=== PATIENT | male | born 1950 | race Caucasian/White ===

== ENCOUNTER 2018-10-05 18:12 | Emergency (ER) | payer OTHER ==
--- OUTSIDE RECORDS SUMMARY | 2018-10-05 18:14 | XMS REPORT ---
:1950 Author Organization eClinicalWorks Care Team Providers Name Role Phone Rios, Na Provider Role Unavailable Allergies No Known Allergies Problems Problem Type Condition Code Onset Dates Condition Status Problem Erectile dysfunction N52.9 Active Problem Type 2 diabetes E11.9 Active Problem Glaucoma H40.9 Active Assessment Hyperlipidemia E78.5 Active Problem Allergic rhinitis J30.9 Active Problem Hypertension I10 Active Problem Hyperlipidemia E78.5 Active Problem Cataract H26.9 Active Problem Alcohol abuse F10.10 Active Problem Hypothyroidism E03.9 Active Problem Diabetic neuropathy E11.40 Active Medications Medication Code Code Instructions Start End Date Status Dosage System Date Klor-Con M10 [facility] [id number] 10 MEQ Orally Active 1 tablet Twice a day with food Simvastatin [facility] 88600652026 10 MG Orally Active 1 tablet Once a day in the evening Results No Known Results Summary Purpose eClinicalWorks Submission
--- OUTSIDE RECORDS SUMMARY | 2018-10-05 18:15 | XMS REPORT ---
:1950 Author Organization eClinicalWorks Care Team Providers Name Role Phone Rios, Na Provider Role Unavailable Allergies No Known Allergies Problems Problem Type Condition Code Onset Dates Condition Status Problem Erectile dysfunction N52.9 Active Problem Type 2 diabetes E11.9 Active Problem Glaucoma H40.9 Active Assessment Hypothyroidism E03.9 Active Assessment Type 2 diabetes E11.9 Active Problem Allergic rhinitis J30.9 Active Problem Hypertension I10 Active Problem Hyperlipidemia E78.5 Active Problem Cataract H26.9 Active Problem Alcohol abuse F10.10 Active Problem Hypothyroidism E03.9 Active Problem Diabetic neuropathy E11.40 Active Medications Medication Code Code Instructions Start End Status Dosage System Date Date Metformin HCl [facility] 17840662626 1000 MG Orally Active 1 tablet Twice a day with meals Synthroid [facility] 31756643398 112 MCG Orally Active 1 tablet Once a day on an empty stomach in the morning Results No Known Results Summary Purpose eClinicalWorks Submission
--- OUTSIDE RECORDS SUMMARY | 2018-10-05 18:15 | XMS REPORT ---
:1950 Author Organization eClinicalWorks Care Team Providers Name Role Phone Rios, Na Provider Role Unavailable Allergies No Known Allergies Problems Problem Type Condition Code Onset Dates Condition Status Problem Erectile dysfunction N52.9 Active Problem Type 2 diabetes E11.9 Active Problem Glaucoma H40.9 Active Problem Allergic rhinitis J30.9 Active Problem Hypertension I10 Active Problem Hyperlipidemia E78.5 Active Problem Cataract H26.9 Active Problem Alcohol abuse F10.10 Active Problem Hypothyroidism E03.9 Active Problem Diabetic neuropathy E11.40 Active Medications Medication Code Code Instructions Start End Date Status Dosage System Date Losartan [facility] 39624356782 100-25 MG Orally Active TAKE ONE Potassium-HCTZ Once a day TABLET BY MOUTH ONCE DAILY Results No Known Results Summary Purpose eClinicalWorks Submission
--- OUTSIDE RECORDS SUMMARY | 2018-10-05 18:15 | XMS REPORT ---
:1950 Author Organization eClinicalWorks Care Team Providers Name Role Phone Rios, Na Provider Role Unavailable Allergies No Known Allergies Problems Problem Type Condition Code Onset Dates Condition Status Problem Erectile dysfunction N52.9 Active Problem Type 2 diabetes E11.9 Active Problem Glaucoma H40.9 Active Assessment Type 2 diabetes E11.9 Active Problem Allergic rhinitis J30.9 Active Problem Hypertension I10 Active Problem Hyperlipidemia E78.5 Active Problem Cataract H26.9 Active Problem Alcohol abuse F10.10 Active Problem Hypothyroidism E03.9 Active Problem Diabetic neuropathy E11.40 Active Medications Medication Code Code Instructions Start End Status Dosage System Date Date Accu-Chek [facility] [id number] - In Vitro twice Feb 24, Active as directed [place] Plus a day 2017 Results No Known Results Summary Purpose eClinicalWorks Submission
--- OUTSIDE RECORDS SUMMARY | 2018-10-05 18:15 | XMS REPORT ---
:1950 Author Organization eClinicalWorks Care Team Providers Name Role Phone Rios, Na Provider Role Unavailable Allergies, Adverse Reactions, Alerts Substance Reaction Event Type Lisinopril Info Not Available Drug Allergy Problems Problem Type Condition Code Onset Dates Condition Status Problem Erectile dysfunction N52.9 Active Problem Type 2 diabetes E11.9 Active Problem Glaucoma H40.9 Active Assessment Medicare annual wellness visit, Z00.00 Active initial Problem Allergic rhinitis J30.9 Active Problem Hypertension I10 Active Problem Hyperlipidemia E78.5 Active Problem Cataract H26.9 Active Problem Alcohol abuse F10.10 Active Problem Hypothyroidism E03.9 Active Problem Diabetic neuropathy E11.40 Active Medications Medication Code Code Instructions Start End Status Dosage System Date [facility] [address]-81 0.03 % Active 1 drop Ophthalmic Once into a day affected eye in the evening Klor-Con M10 [facility] 00619153023 10 MEQ Orally Active 1 tablet Twice a day with food Amlodipine [facility] 88512496366 5 MG Orally Active 1 tablet Besylate Once a day Simvastatin [facility] 04908987599 10 MG Orally Active 1 tablet Once a day in the evening Viagra [facility] 13607976890 100 MG Orally Active 1 tablet Once a day as needed Synthroid [facility] 46425251926 112 MCG Orally Active 1 tablet Once a day on an empty stomach in the morning Levothyroxine [facility] 77292685350 112MCG Active TAKE 1 Sodium TABLET BY MOUTH ONCE DAILY Metformin HCl [facility] 25689589772 1000 MG Orally Active 1 tablet Twice a day with meals Hyzaar [facility] 71267763973 100-25 MG Active 1 tablet Orally Once a day Tradjenta [facility] 92751851144 5 MG Orally Active 1 tablet Once a day Gemfibrozil [facility] 69007838469 600 MG Orally Active 1 tablet Twice a day Lopid [place] 43639447560 600 MG Orally Active 1 tablet once a day Aspir-81 [facility] 41393936824 81 MG Orally Active 1 tablet Once a day Results No Known Results Summary Purpose eClinicalWorks Submission
--- OUTSIDE RECORDS SUMMARY | 2018-10-05 18:15 | XMS REPORT ---
[...] E03.9 Active Problem Diabetic neuropathy E11.40 Active Assessment Hyperlipidemia E78.5 Active Assessment Hypertension I10 Active Assessment Diabetic neuropathy E11.40 Active Assessment Type 2 diabetes E11.9 Active Assessment Hypothyroidism E03.9 Active Medications Medication Code Code Instructions Start End Status Dosage System Date Date Tradjenta [facility] 30209260370 5 MG Orally Inactive 1 tablet Once a day Amlodipine [facility] 48536504941 5 MG Active TAKE ONE Besylate TABLET BY MOUTH ONCE DAILY Gemfibrozil [facility] 04583529260 600 MG Active TAKE 1 TABLET BY MOUTH TWICE DAILY Aspir-[address] [facility] 74614109337 81 MG Orally Active 1 tablet Once a day Viagra [facility] 78706000152 100 MG Orally Active 1 tablet as Once a day needed Synthroid [facility] 60028064902 112 MCG Orally Active 1 tablet on Once a day an empty stomach in the morning Simvastatin [facility] 83758186364 10 MG Orally Active 1 tablet in Once a day the evening Accu-Chek [place] [facility] 67941077977 - In Vitro Active as directed Plus twice a day Losartan [facility] 71437891430 100-25 MG Active TAKE ONE Potassium-HCTZ TABLET BY MOUTH ONCE DAILY Gemfibrozil [facility] 51029402004 600 MG Orally Active 1 tablet Twice a day Lopid [place] 65905139990 600 MG Orally Active 1 tablet once a day Levothyroxine [facility] 12229335449 112MCG Active TAKE 1 Sodium TABLET BY MOUTH ONCE DAILY Amlodipine [facility] 99932301713 5 MG Orally Active 1 tablet Besylate Once a day Hyzaar [facility] 72872551685 100-25 MG Active 1 tablet Orally Once a day Klor-Con M10 [facility] 28240841932 10 MEQ Orally Active 1 tablet Twice a day with food Metformin HCl [facility] 98145176393 1000MG Active TAKE 1 TABLET BY MOUTH TWICE DAILY Glimepiride [facility] 75674338207 4 MG Orally Active 1 tablet Once a day with breakfast or the first main meal of the day Metformin HCl [facility] 29142598290 1000 MG Orally Active 1 tablet Twice a day with meals Lumigan [facility] [address]-74 0.03 % Active 1 drop into Ophthalmic affected Once a day eye in the evening Results No Known Results Summary Purpose eClinicalWorks Submission
--- OUTSIDE RECORDS SUMMARY | 2018-10-05 18:16 | XMS REPORT ---
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
--- OUTSIDE RECORDS SUMMARY | 2018-10-05 18:16 | XMS REPORT ---
[...] Date Status Dosage System Date Klor-Con M10 [facility] 55523948929 10 MEQ Orally Active 1 tablet Twice a day with food Results No Known Results Summary Purpose eClinicalWorks Submission
--- OUTSIDE RECORDS SUMMARY | 2018-10-05 18:16 | XMS REPORT ---
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
--- OUTSIDE RECORDS SUMMARY | 2018-10-05 18:16 | XMS REPORT ---
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 Assessment Primary osteoarthritis, right hand M19.041 Active Assessment Type 2 diabetes E11.9 Active Assessment Hyperlipidemia E78.5 Active Problem Erectile dysfunction N52.9 Active Assessment Hypertension I10 Active Problem Glaucoma H40.9 Active Medications Medication Code Code Instructions Start End Status Dosage System Date Date Metformin HCl [facility] 95553260232 1000 MG Orally Active 1 tablet Twice a day with meals Accu-Chek [place] [facility] 02921011804 - In Vitro Active as directed Plus twice a day Amlodipine ND 78377787992 5 MG Orally Active 1 tablet Besylate Once a day Gemfibrozil [facility] 55882984157 600 MG Active TAKE 1 TABLET BY MOUTH TWICE DAILY Metformin HCl [facility] 68300369261 1000MG Active TAKE 1 TABLET BY MOUTH TWICE DAILY Synthroid [facility] 63436776697 112 MCG Orally Active 1 tablet on Once a day an empty stomach in the morning Glimepiride [facility] 60833519090 4 MG Orally Active 1 tablet Once a day with breakfast or the first main meal of the day Losartan [facility] 16209290564 100-25 MG Active TAKE ONE Potassium-HCTZ TABLET BY MOUTH ONCE DAILY Hyzaar [facility] 18467071907 100-25 MG Active 1 tablet Orally Once a day Gemfibrozil [facility] 68351313614 600 MG Orally Active 1 tablet Twice a day -81 [facility] 09167752058 81 MG Orally Active 1 tablet Once a day Klor-Con M10 [facility] 92327889360 10 MEQ Orally Active 1 tablet Twice a day with food Lumigan [facility] [address]-76 0.03 % Active 1 drop into Ophthalmic Once affected a day eye in the evening Hyzaar [facility] 78201550710 100-25 MG Active 1 tablet Orally Once a day Synthroid [facility] 70624807362 112 MCG Orally Active 1 tablet on Once a day an empty stomach in the morning Lopid [facility] 40409703190 600 MG Orally Active 1 tablet once a day Simvastatin [facility] 82519084214 10 MG Orally Active 1 tablet in Once a day the evening Levothyroxine [facility] 46269982955 112MCG Active TAKE 1 Sodium TABLET BY MOUTH ONCE DAILY Amlodipine [facility] 72646785930 5 MG Active TAKE ONE Besylate TABLET BY MOUTH ONCE DAILY Viagra [facility] 20729828545 100 MG Orally Active 1 tablet as Once a day needed Results No Known Results Summary Purpose eClinicalWorks Submission
[2018-10-05] MEDS ORDERED: TETRACAINE HCL 0.5% 4ML OPTH ONE (20:19)
[2018-10-05] MEDS ORDERED: FLUORESCEIN SODIUM 1 MG/WRAP ONE (20:19)
--- NOTE | 2018-10-05 20:31 | ER ---
Nurse's Notes [facility] Name: Jason Day Age: 68 yrs Sex: Male : 1950 Arrival Date: 10/05/2018 Time: 18:13 Bed 11 Private MD: Darlene Rios Diagnosis: Injury of conjunctiva and corneal abrasion without foreign body, right eye Presentation: 10/05 18:23 Presenting complaint: Patient states: "I got sawdust in my eye while I was cutting some [employer] wood" Redness noted to right eye. Denies any vision changes. Transition of care: patient was not received from another setting of care. Onset of symptoms was October 05, 2018 at 14:00. Risk Assessment: Do you want to hurt yourself or someone else? Patient reports no desire to harm self or others. Initial Sepsis Screen: Does the patient meet any 2 criteria? No. Patient's initial sepsis screen is negative. Does the patient have a suspected source of infection? No. Patient's initial sepsis screen is negative. Care prior to arrival: None. 18:23 Method Of Arrival: Ambulatory aj1 18:23 Acuity: ROBERTO 4 aj1 Triage Assessment: 18:25 General: Appears in no apparent distress. comfortable, Behavior is calm, cooperative, aj1 appropriate for age. Pain: Complains of pain in right eye Pain currently is 4 out of 10 on a pain scale. Neuro: Level of Consciousness is awake, alert, obeys commands, Oriented to person, place, time, situation. Cardiovascular: Patient's skin is warm and dry. Respiratory: Airway is patent Respiratory effort is even, unlabored, Respiratory pattern is regular, symmetrical. Historical: - Allergies: 18:25 No Known Allergies; aj1 - PMHx: 18:25 Hypertension; Diabetes - NIDDM; Hypothyroidism; Hyperlipidemia; Glaucoma; aj1 - PSHx: 18:25 cataract removal; aj1 - Immunization history:: Flu vaccine is up to date. - Social history:: Smoking status: Patient/guardian denies using tobacco. - Ebola Screening: : Patient denies travel to an Ebola-affected area in the 21 days before illness onset. Screenin:14 Abuse screen: Denies threats or abuse. Denies injuries from another. Nutritional aj1 screening: No deficits noted. Tuberculosis screening: No symptoms or risk factors identified. 20:15 Fall Risk None identified. aj1 Assessment: 19:14 General: Appears in no apparent distress. comfortable, Behavior is calm, cooperative, aj1 appropriate for age. Pain: Complains of pain in right eye. Neuro: Level of Consciousness is awake, alert, obeys commands, Oriented to person, place, time, Appropriate for age. Cardiovascular: Patient's skin is warm and dry. Respiratory: Airway is patent Respiratory effort is even, unlabored, Respiratory pattern is regular, symmetrical. GI: No signs and/or symptoms were reported involving the gastrointestinal system. : No signs and/or symptoms were reported regarding the genitourinary system. EENT: Sclera/Cornea are reddened in right eye. Derm: No signs and/or symptoms reported regarding the dermatologic system. Skin is pink, warm \\T\\ dry. normal. Musculoskeletal: No signs and/or symptoms reported regarding the musculoskeletal system. Circulation, motion, and sensation intact. 20:15 Reassessment: Patient appears in no apparent distress at this time. No changes from aj1 previously documented assessment. Patient and/or family updated on plan of care and expected duration. Pain level reassessed. Patient is alert, oriented x 3, equal unlabored respirations, skin warm/dry/pink. Vital Signs: 18:25 BP 183 / 95; Pulse 83; Resp 18; Temp 98.0; Pulse Ox 98% on R/A; Weight 85.73 kg (R); aj1 Height 5 ft. 10 in. (177.80 cm) (R); Pain 4/10; 18:25 Body Mass Index 27.12 (85.73 kg, 177.80 cm) aj1 Visual Acuity: 19:13 Left Eye Visual acuity 20/20, ; Right Eye Visual acuity 20/20, ; Both Eyes Visual aj1 acuity 20/20; With Lenses; ED Course: 18:13 Patient arrived in ED. as 18:13 Darlene Rios MD is Private Physician. as 18:24 Triage completed. aj1 18:25 Arm band placed on Patient placed in waiting room, Patient notified of wait time. aj1 19:13 Yola Garcia RN is Primary Nurse. aj1 19:14 Patient has correct armband on for positive identification. Bed in low position. Call aj1 light in reach. Side rails up X 1. 19:14 No provider procedures requiring assistance completed. aj1 19:32 Aquiles Simon PA is PHCP. cp 19:32 Timothy Pérez MD is Attending Physician. cp 20:15 Patient did not have IV access during this emergency room visit. aj1 20:30 Valentin Li MD is Referral Physician. cp Administered Medications: 20:22 Drug: Tetracaine Drops 0.5 % 1 drops {Note: Administered by ALYSA Steele.} Route: aj1 Ophthalmic; Site: right eye; 21:01 Drug: Gentamicin Ointment 0.3 % 0.5 inches Route: Ophthalmic; Site: right eye; aj1 Outcome: 20:15 Discharged to home ambulatory. aj1 20:15 Condition: good 20:15 Discharge instructions given to patient, Instructed on discharge instructions, follow up and referral plans. medication usage, Demonstrated understanding of instructions, follow-up care, medications, Prescriptions given X 1. 20:31 Discharge ordered by MD. cp 21:03 Patient left the ED. aj1 Signatures: Yola Garcia RN RN aj1 Elaine Hull as Aquiles Simon PA PA cp
--- NOTE | 2018-10-05 20:31 | EDPHYS ---
Physician Documentation [facility] Name: Jason Day Age: 68 yrs Sex: Male : 1950 Arrival Date: 10/05/2018 Time: 18:13 Bed 11 Private MD: Darlene Rios ED Physician Timothy Pérez HPI: 10/05 19:45 This 68 yrs old Male presents to ER via Ambulatory with complaints of Foreign cp Body In Eye - Sawdust. 19:45 The patient is experiencing foreign body sensation, redness. Onset: The cp symptoms/episode began/occurred today. 19:45 Patient wears glasses. cp 19:45 Patient reports concern for sawdust under right upper eyelid after cutting wood today. cp Historical: - Allergies: 18:25 No Known Allergies; aj1 - PMHx: 18:25 Hypertension; Diabetes - NIDDM; Hypothyroidism; Hyperlipidemia; Glaucoma; aj1 - PSHx: 18:25 cataract removal; aj1 - Immunization history:: Flu vaccine is up to date. - Social history:: Smoking status: Patient/guardian denies using tobacco. - Ebola Screening: : Patient denies travel to an Ebola-affected area in the 21 days before illness onset. ROS: 20:00 Constitutional: Negative for body aches, chills, fever, poor PO intake. cp 20:00 Eyes: Positive for foreign body sensation, redness, of the right eye, Negative for cp discharge, vision loss, visual disturbance. 20:00 ENT: Negative for drainage from ear(s), ear pain, sore throat, difficulty swallowing, difficulty handling secretions. 20:00 Cardiovascular: Negative for chest pain. 20:00 Respiratory: Negative for cough, shortness of breath, wheezing. 20:00 Abdomen/GI: Negative for abdominal pain, nausea, vomiting, and diarrhea. 20:00 Skin: Negative for cellulitis, rash. 20:00 Neuro: Negative for altered mental status, headache. 20:00 All other systems are negative. Exam: 20:05 Head/Face: Normocephalic, atraumatic. cp 20:05 Constitutional: The patient appears in no acute distress, alert, awake, non-toxic, well developed, well nourished, uncomfortable. 20:05 Eyes: Periorbital structures: appear normal, Pupils: equal, round, and reactive to cp light and accomodation, Extraocular movements: intact throughout, Conjunctiva: injected, in the right eye, Corneas: abrasion, that is small, at 12 o'clock, foreign body, is not appreciated, a fluorescein strip employed to appreciate the findings, Anterior chamber: normal, no hyphema, Lids and lashes: appear normal, bilaterally, Visual miller: are intact, Examination of the other eye reveals no obvious gross abnormality, Intraocular pressure: right eye = 19mmHg, left eye = 22mmHg. 20:05 ENT: External ear(s): are unremarkable, Ear canal(s): are normal, clear, TM's: dullness, bilaterally, Nose: is normal, Mouth: Lips: moist, Oral mucosa: pink and intact, moist, Posterior pharynx: is normal, airway is patent, no erythema, no exudate. 20:05 Neck: Lymph nodes: no appreciated lymphadenopathy. 20:05 Chest/axilla: Inspection: normal. 20:05 Cardiovascular: Rate: normal. 20:05 Respiratory: the patient does not display signs of respiratory distress, Respirations: normal. 20:05 Skin: cellulitis, is not appreciated, no rash present. 20:05 Neuro: Orientation: to person, place \T\ time. Mentation: is normal. Vital Signs: 18:25 BP 183 / 95; Pulse 83; Resp 18; Temp 98.0; Pulse Ox 98% on R/A; Weight 85.73 kg (R); aj1 Height 5 ft. 10 in. (177.80 cm) (R); Pain 4/10; 18:25 Body Mass Index 27.12 (85.73 kg, 177.80 cm) aj1 Visual Acuity: 19:13 Left Eye Visual acuity 20/20, ; Right Eye Visual acuity 20/20, ; Both Eyes Visual aj1 acuity 20/20; With Lenses; MDM: 19:32 Patient medically screened. cp 20:00 Differential diagnosis: Corneal abrasion of right eye. Foreign body in right eye. Acute cp iritis of Acute glaucoma in right eye. 20:30 Data reviewed: vital signs, nurses notes, and as a result, I will discharge patient. cp 20:30 Counseling: I had a detailed discussion with the patient and/or guardian regarding: the cp historical points, exam findings, and any diagnostic results supporting the discharge/admit diagnosis, the need for outpatient follow up, an opthalmologist, to return to the emergency department if symptoms worsen or persist or if there are any questions or concerns that arise at home. Response to treatment: the patient's symptoms have mildly improved after treatment, and as a result, I will discharge patient. 10/05 19:40 Order name: Visual Acuity; Complete Time: 20:04 cp 10/05 19:40 Order name: Eye Tray; Complete Time: 20:07 cp 10/05 19:40 Order name: Fluoresene Opth strip; Complete Time: 20:07 cp Administered Medications: 20:22 Drug: Tetracaine Drops 0.5 % 1 drops {Note: Administered by PA. Ivette} Route: aj1 Ophthalmic; Site: right eye; 21:01 Drug: Gentamicin Ointment 0.3 % 0.5 inches Route: Ophthalmic; Site: right eye; aj1 Disposition: 21:15 Chart complete. cp Disposition: 10/05/18 20:31 Discharged to Home. Impression: Injury of conjunctiva and corneal abrasion without foreign body, right eye. - Condition is Stable. - Discharge Instructions: Corneal Abrasion. - Prescriptions for Tobrex 0.3 % Ophthalmic ointment - apply 0.5 inch ribbon by OPHTHALMIC route 2 times per day for 7 days; 1 tube. - Medication Reconciliation Form, Thank You Letter, Antibiotic Education, Prescription Opioid Use form. - Follow up: Valentin Li MD; When: Tomorrow; Reason: Recheck today's complaints. - Problem is new. - Symptoms have improved. Signatures: Yola Garcia RN RN aj1 Aquiles Simon PA PA cp Corrections: (The following items were deleted from the chart) 21:03 20:31 10/05/2018 20:31 Discharged to Home. Impression: Injury of conjunctiva and aj1 corneal abrasion without foreign body, right eye. Condition is Stable. Prescriptions for Gentamicin 0.3 % (3 mg/gram) Ophthalmic Ointment - apply 0.5 inch by OPHTHALMIC route 2-3 times daily for 7 days; 3.5 gram. and Forms are Medication Reconciliation Form, Thank You Letter, Antibiotic Education, Prescription Opioid Use. Follow up: Valentin Li; When: Tomorrow; Reason: Recheck today's complaints. Problem is new. Symptoms have improved. cp
[2018-10-05] MEDS ORDERED: GENTAMICIN 0.3% OPTH DROP 5ML ONE (20:47)
[2018-10-05] MEDS ORDERED: TOBRAMYCIN SULF 0.3% OPTH OINT ONE (21:00)
== END 2018-10-05 21:03 | disposition home or self-care (01) ==
LOC: ER 18:12
DX: S05.01XA Injury of conjunctiva and corneal abrasion without foreign body, right eye, initial encounter (principal); W45.8XXA Other foreign body or object entering through skin, initial encounter; Y93.H3 Activity, building and construction; I10 Essential (primary) hypertension; E11.9 Type 2 diabetes mellitus without complications; E03.9 Hypothyroidism, unspecified; E78.5 Hyperlipidemia, unspecified
CPT/HCPCS: 99283